=== PATIENT | male | born 1960 | race Caucasian/White ===

== ENCOUNTER 2019-07-31 06:15 | Emergency (ER) | payer MEDICAID, OTHER ==
[~2019-07-31] VITALS: Ht 175.3 cm; Wt 88.0 kg
[2019-07-31] MEDS ORDERED: IBUPROFEN 600MG TABLET PO ONE (07:45)
[2019-07-31] MEDS ORDERED: LIDOCAINE HCL/PF 1% 10 MG/ML 5ML VIAL IJ ONE (08:30)
[2019-07-31 11:18] VITALS: BP 138/88
== END 2019-07-31 11:19 | disposition home or self-care (01) ==
LOC: ER 06:15
DX: S63.286A Dislocation of proximal interphalangeal joint of right little finger, initial encounter (principal); S63.288A Dislocation of proximal interphalangeal joint of other finger, initial encounter; X58.XXXA Exposure to other specified factors, initial encounter; Y93.89 Activity, other specified; Y92.89 Other specified places as the place of occurrence of the external cause; Y99.8 Other external cause status
CPT/HCPCS: 26770; 73120; 73140; 99285

== ENCOUNTER 2019-08-03 13:12 | Emergency (ER) | payer MEDICAID, OTHER ==
[~2019-08-03] VITALS: Ht 175.3 cm; Wt 90.0 kg
[2019-08-03 13:36] VITALS: BP 138/77
== END 2019-08-03 15:14 | disposition home or self-care (01) ==
LOC: ER 13:12
DX: S61.212D Laceration without foreign body of right middle finger without damage to nail, subsequent encounter (principal); X58.XXXD Exposure to other specified factors, subsequent encounter
CPT/HCPCS: 99281

== ENCOUNTER 2022-02-03 19:08 | Emergency (ER) | payer MEDICAID ==
[~2022-02-03] VITALS: Ht 172.7 cm; Wt 91.0 kg
[2022-02-03 19:10] VITALS: BP 140/90
== END 2022-02-03 21:48 | disposition home or self-care (01) ==
LOC: ER 19:08
DX: F10.129 Alcohol abuse with intoxication, unspecified (principal); Y90.9 Presence of alcohol in blood, level not specified
CPT/HCPCS: 99283